=== PATIENT | female | born 1930 | race Caucasian/White ===

== ENCOUNTER 2018-12-11 09:42 | Observation (INO) ==
--- NOTE | 2018-12-11 10:07 | ERNOTE ---
Upper Extremity HPI - Narrative Date of Service: 12/11/18 - General Extremities Pain Location: shoulder: left, arm: left, elbow: left Time Seen by Provider: 12/11/18 10:07 Source: patient Exam Limitations: no limitations - Immun/Allergies/Home Medications Immunizations: IMMUNIZATION HX Immunizations Up to Date Yes History of Influenza Vaccine Yes Hx Pneumococcal Vaccination Yes Allergies/Adverse Reactions: Allergies Allergy/AdvReac Type Severity Reaction Status Date / Time atenolol [From Tenormin] Allergy hives Verified 12/11/18 09:52 azithromycin Allergy hives, Verified 12/11/18 09:52 [From Zithromax Z-Peter] itchy Penicillins Allergy Verified 12/11/18 09:52 Sulfa (Sulfonamide Allergy Verified 12/11/18 09:52 Antibiotics) rhinitis Allergy seasonal Uncoded 12/11/18 09:52 Home Medications: HOME MEDICATIONS Acetaminophen [Tylenol] 1,000 mg PO Q8H PRN 02/16/16 [Last Taken Unknown] Cholecalciferol (Vitamin D3) [Vitamin D3] 2,000 unit PO DAILY 02/16/16 [Last Taken Unknown] Fluticasone Propionate [Flonase] 2 spray NS DAILY PRN 02/16/16 [Last Taken Unknown] lorazepam 0.5 mg tablet 0.5 mg PO HS 30 Days #30 tab 06/23/18 [Last Taken Unknown] albuterol sulfate HFA 90 mcg/actuation aerosol inhaler 1 puff IH Q4H PRN g 06/24/18 [Last Taken Unknown] melatonin 5 mg tablet 5 mg PO HS PRN 06/24/18 [Last Taken Unknown] multivitamin tablet 1 tab PO DAILY 06/24/18 [Last Taken Unknown] wheat dextrin 3 gram/3.8 gram oral powder 1 packet PO DAILY 06/24/18 [Last Taken Unknown] aspirin 81 mg chewable tablet 81 mg PO .QOD tab 06/27/18 [Last Taken Unknown] amlodipine 5 mg tablet 5 mg PO DAILY #30 tab 10/05/18 [Last Taken Unknown] isosorbide mononitrate ER 30 mg tablet,extended release 24 hr 15 mg PO DAILY #15 tab 10/05/18 [Last Taken Unknown] levothyroxine 50 mcg tablet 50 mcg PO DAILY #30 tab 10/05/18 [Last Taken Unknown] losartan 100 mg tablet 100 mg PO HS #30 tab 11/08/18 [Last Taken Unknown] pravastatin 40 mg tablet 40 mg PO DAILY #30 tab 10/05/18 [Last Taken Unknown] - Pain Score Pain Score #1 Pain Score: 4 - History of Present Illness Narrative: The patient is a 88 year old female who presents for intermittent left arm pain which has been present for several months. There are associated symptoms of left anterior chest pain. The patient reports left arm pain, 4/10. There are no alleviating factors. There are no aggravating factors. Previous treatments have included: none. The past medical history includes: GERD, hyp othyroid, HLD, allergic rhinitis, osteoarthritis and osteopenia. The social history is negative. The patient has had no ill contacts. Patient denies know injury but states she did have increased pain yesterday while doing her arm exercises. Patient states that pain to left arm has been intermittent for several months and typically resolves spontaneously. Patient states last evening she began having some left anterior chest pain without dypsnea, nausea or diaphoresis. Review of Systems - Review of Systems Constitutional: Present: no symptoms reported. Absent: fever, fatigue EYE: Present: no symptoms reported ENT: Present: no symptoms reported. Absent: ear pain, nasal drainage, sore throat Respiratory: Present: no symptoms reported. Absent: shortness of breath, cough Cardiology: Present: chest pain. Absent: edema Gastrointestinal/Abdominal: Present: constipation. Absent: nausea, vomiting, diarrhea, abdominal pain Genitourinary: Present: no symptoms reported. Absent: dysuria Musculoskeletal: Present: joint pain Skin: Present: no symptoms reported. Absent: rash Neurological: Present: no symptoms reported Endocrine: Present: no symptoms reported Hematologic/Lymphatic: Present: no symptoms reported Psych: Present: no symptoms reported All Other Systems: All systems neg except as marked Medical History (Last Reviewed 12/11/18 @ 10:15 by BOONE Tirado) Osteopenia of femoral neck, bilateral (Chronic) (Chronic) History of osteopenia (Chronic) Osteoarthritis (Chronic) Onset Date: 09/04/14 Elevated troponin (Resolved) Onset Date: 03/06/18 admitted [facility] C. difficile diarrhea (Resolved) Onset Date: ~09/2015 Angiomyolipoma of left kidney (Chronic) Allergic rhinitis (Chronic) Onset Date: 01/03/12 GERD (gastroesophageal reflux disease) (Chronic) Hyperlipemia (Acute) Hypothyroidism (Chronic) Surgical History: Surgical History (Last Reviewed 12/11/18 @ 10:15 by BOONE Tirado) Abnormal colonoscopy Onset Date: 09/29/15 patchy mild acute inflammation of the lamina proprla w/ focal ulceration; hyperplastic polyp; infection diff. diverticular associated colitis-Dr. Laws H/O breast biopsy noncancerous H/O: hysterectomy Onset Date: ~1977 History of appendectomy Onset Date: ~1977 Dr. Zaidi w/hyst History of oophorectomy Onset Date: ~1977 partial menometrorrhagia/uterine fibroids History of tonsillectomy Onset Date: ~1946 Normal colonoscopy Onset Date: 05/21/05 Dr. Martino Normal echocardiogram Onset Date: ~01/2016 Family History: Family History (Last Reviewed 12/11/18 @ 10:15 by BOONE Tirado) Mother , age 70 Kidney disease Father , 98 Old age Sister , 86 Alzheimers disease Social History: Preferred Language Iraqi Smoking Status Light tobacco smoker Abuse History No History of abuse Psych History No pertinent hx Alcohol Use none Drug Use none (Last Updated 11/01/18 @ 15:41 by Patricia Pina MD) No Social History Section defined Physical Exam - Physical Exam General Appearance: Present: wd/wn, alert, no apparent distress Head Exam: Present: normal inspection, no evidence of injury Ears, Nose, Throat: Present: cerumen impaction - left. Absent: sinus pain/drainage Neck: Present: normal inspection, nontender Respiratory: Present: no respiratory distress, normal breath sounds, no accessory muscle use, lungs clear Cardiovascular/Chest: Present: regular rate, rhythm, systolic murmur Peripheral Pulses: N=norm/S=strong/W=weak/B=bound/A=absent: Radial (R): Normal Gastrointestinal/Abdominal: Present: normal bowel sounds, nontender, nondistended, soft, no organomegaly Back Exam: Present: no CVA tenderness Extremity Exam: Absent: pedal edema Neurological Exam: Present: alert, oriented, normal mood/affect Skin Exam: Present: normal color, warm/dry Progress - Date and Time Seen: Date and Time: 12/11/18 11:38 Discussed case with , patient will be admitted for serial trop and EKG monitoring. ECHO report from previous [facility] admission obtained. - Results and Orders Patient's Lab Results:: I have reviewed the patient's lab results. - Vital Signs Patient's Vital Signs:: I have reviewed the patient's vital signs. Vital Signs: Vital Signs 12/11/18 09:43 Temperature 36.6 C Pulse Rate 67 Respiratory Rate 16 Blood Pressure 139/60 O2 Sat by Pulse Oximetry 95 - EKG EKG #1 EKG: NSR, nonspecific ST T wave changes, other - intermittent PVC's EKG read: Reviewed by me - X-Ray X-Ray #1 X-Ray: chest Interpretation: Reviewed by me X-ray Comments: X-RAY REPORT [id number] RAD/Chest PA & Lateral *~ Exam Date: 12/11/2018 09:58 Ordering Physician: Orlando Robbins DO HISTORY: Chest Pain TWO VIEW CHEST Comparison: 01/22/2017 Technique: Upright frontal and lateral views of the chest were obtained. Findings: The cardiac silhouette is within normal limits of size. The mediastinum and hilum are with in normal limits. The lung mclean demonstrate hyperinflation with scattered fibrotic change, but appears clear. Again seen is a granuloma in the left lower lung zone. I do not see evidence for an infiltrate, effusion or pulmonary edema. There is a thoracic scoliosis convexity directed to the right. There is diffuse disc space narrowing with degenerative spurring in the endplates with vertebral body height loss, which appears chronic. IMPRESSION: 1. NO ACUTE CARDIOPULMONARY PROCESS. 2. HYPERINFLATION Electronically signed by Varinder Mcdermott M.D.. X-Ray #2 X-Ray: shoulder Interpretation: Reviewed by me X-ray Comments: X-RAY REPORT [id number] RAD/Shoulder Complete LT *~ Exam Date: 12/11/2018 10:20 Ordering Physician: Leona Corrales MANAGER ENGINE HISTORY: Left shoulder pain for six months to year THREE VIEW LEFT SHOULDER COMPARISON: None Technique: Three projections of the shoulder were obtained. Findings: There is diffuse osteopenia. The acromioclavicular joint is maintained. The clavicle appears intact and is not elevated. The visualized scapula is intact. The glenohumeral joint is maintained and I do not see evidence for dislocation. The proximal humerus is intact. If there is clinical concern for internal derangement, followup MRI is recommended. The visualized lung field is clear. IMPRESSION: 1. NO ACUTE OSSEOUS ABNORMALITY. 2. DIFFUSE OSTEOPENIA. Electronically signed by Varinder Mcdermott M.D.. - Progress/Reassessment Chief Complaint: Upper Extremity Injury/Problem Departure Clinical Impression: Elevated troponin Chest pain Qualifiers: Chest pain type: unspecified Qualified Code(s): R07.9 - Chest pain, unspecified Arm pain Qualifiers: Laterality: left Qualified Code(s): M79.602 - Pain in left arm - Departure Disposition: Still a patient Condition: Good
[2018-12-11 10:23] LABS: Hematocrit 47.9 % (37.0-47.0); Mean Cell Volume 91.9 fl (78-100); Mean Corpuscular Hemoglobin 30.7 pg (27-31); Mean Corpuscular Hgb Conc 33.4 g/dl (32-36); Mean Platelet Volume 10.5 fl (8-12.5); Neutrophil # 3.8 K/mm3 (1.3-6.0); Neutrophil % 64.5 % (42-75.0); Platelet Count 271 K/mm3 (150-450); Red Blood Count 5.21 M/mm3 (4.2-5.4); Red Cell Distribution Width 13.1 % (11.5-14.0); White Blood Count 5.8 K/mm3 (4.0-10.5)
[2018-12-11 10:25] LABS: INR 0.96 INR (0.90-1.10); Partial Thrombolplastin Time 26.4 Seconds (24-32); Prothrombin Time (Patient) 9.6 Seconds (9.0-11.0)
[2018-12-11 10:30] LABS: Albumin * 3.9 gm/dl (3.4-5.0); Anion Gap 11.6 mmol/L (6.8-13.8); BUN/Creatinine Ratio 22.2 (9.0-21.6); Bilirubin, Total 0.5 mg/dL (0.0-1.1); Ca. Corrected For Albumin 9.8 mg/dL (8.4-10.2); Carbon Dioxide 29.1 mmol/L (24-32.6); Potassium 3.7 mmol/L (3.4-4.6); Total Protein 7.8 gm/dL (6.2-8.2)
[2018-12-11 10:34] LABS: Troponin I 0.162 ng/mL (0.00-0.10)
[2018-12-11] MEDS ORDERED: ASPIRIN 81 MG TAB.CHEW PO ONE (10:39)
[2018-12-11] MEDS ORDERED: MELATONIN 3,000 MCG TABLET PO PRN (16:50)
--- NOTE | 2018-12-11 17:13 | HP ---
Chief Complaint - Chief Complaint Date of Service: 12/11/18 Time of Service: 17:00 Chief Complaint: Left arm pain History of Present Illness: 88-year-old female with a past medical history of hypothyroidism, hyperlipidemia, osteoarthritis, hypertension presents from home with complaints of left arm pain. She states the pain is achy in nature. Pain is worse with raising her arm over her head. She did not take anything for the pain. Pain lasts a few hours she states. Onset is 1 year ago and has been intermittent since. Pain was very severe last night when she went to bed, and she rated it a 8 out of 10. She presented to the emergency department and was admitted for observation. Now the pain is a 2 out of 10. She denies shortness of breath, diaphoresis, palpitations, shortness of breath, nausea or vomiting. She states has never had imaging of her left shoulder. She has a history of osteoarthritis in her low back. Medical History (Last Reviewed 12/11/18 @ 13:13 by Jamila Foster RN) Osteopenia of femoral neck, bilateral (Chronic) (Chronic) History of osteopenia (Chronic) Osteoarthritis (Chronic) Onset Date: 09/04/14 Elevated troponin (Resolved) Onset Date: 03/06/18 admitted [facility] C. difficile diarrhea (Resolved) Onset Date: ~09/2015 Angiomyolipoma of left kidney (Chronic) Allergic rhinitis (Chronic) Onset Date: 01/03/12 GERD (gastroesophageal reflux disease) (Chronic) Hyperlipemia (Acute) Hypothyroidism (Chronic) Surgical History: Surgical History (Last Reviewed 12/11/18 @ 13:14 by Jamila Foster RN) Abnormal colonoscopy Onset Date: 09/29/15 patchy mild acute inflammation of the lamina proprla w/ focal ulceration; hyperplastic polyp; infection diff. diverticular associated colitis-Dr. Laws H/O breast biopsy noncancerous H/O: hysterectomy Onset Date: ~1977 History of appendectomy Onset Date: ~1977 Dr. Zaidi w/sanjiv History of oophorectomy Onset Date: ~1977 partial menometrorrhagia/uterine fibroids History of tonsillectomy Onset Date: ~1946 Normal colonoscopy Onset Date: 05/21/05 Dr. Martino Normal echocardiogram Onset Date: ~01/2016 Family History: Family History (Last Reviewed 12/11/18 @ 13:14 by Jamila Foster RN) Mother , age 70 Kidney disease Father , 98 Old age Sister , 86 Alzheimers disease Social History: Patient Lives/Resources Home Utilized Occupation retired Preferred Language Khmer Do you have any voodoo or No cultural preference? Smoking Status Current every day smoker Have you smoked in the past 12 Yes months Do you dip or chew tobacco No Abuse History No History of abuse Psych History No pertinent hx Alcohol Use none Drug Use none (Last Updated 11/01/18 @ 15:41 by Patricia Pina MD) No Social History Section defined Review Of Systems (GEN) - Review of Systems Generalized/Overall Review: Absent: Fever Cardiac: Absent: Chest Pain, Edema, Palpitations Abdominal: Absent: Nausea, Vomiting, Abdominal Pain Musculoskeletal: Present: Joint Pain - Left shoulder Misc: All systems neg except as marked Immunizations: IMMUNIZATION HX Immunizations Up to Date Yes History of Influenza Vaccine Yes Hx Pneumococcal Vaccination Yes Allergies/Adverse Reactions: Allergies Allergy/AdvReac Type Severity Reaction Status Date / Time atenolol Allergy Hives Verified 12/11/18 13:11 azithromycin Allergy Hives Verified 12/11/18 13:11 Penicillins Allergy Hives Verified 12/11/18 13:11 Sulfa (Sulfonamide Allergy Hives Verified 12/11/18 13:11 Antibiotics) Home Medications: HOME MEDICATIONS Acetaminophen [Tylenol] 1,000 mg PO Q8H PRN 02/16/16 [Last Taken Unknown] Cholecalciferol (Vitamin D3) [Vitamin D3] 2,000 unit PO DAILY 02/16/16 [Last Taken Unknown] lorazepam 0.5 mg tablet 0.5 mg PO HS 30 Days #30 tab 06/23/18 [Last Taken Unknown] melatonin 5 mg tablet 5 mg PO HS PRN 06/24/18 [Last Taken Unknown] multivitamin tablet 1 tab PO DAILY 06/24/18 [Last Taken Unknown] wheat dextrin 3 gram/3.8 gram oral powder 1 packet PO DAILY 06/24/18 [Last Taken Unknown] aspirin 81 mg chewable tablet 81 mg PO Q2D tab 06/27/18 [Last Taken 12/11/18 10:00 324 mg in ED] amlodipine 5 mg tablet 5 mg PO DAILY #30 tab 10/05/18 [Last Taken Unknown] isosorbide mononitrate ER 30 mg tablet,extended release 24 hr 15 mg PO DAILY #15 tab 10/05/18 [Last Taken Unknown] levothyroxine 50 mcg tablet 50 mcg PO DAILY #30 tab 10/05/18 [Last Taken Unknown] losartan 100 mg tablet 100 mg PO HS #30 tab 10/05/18 [Last Taken Unknown] Pravastatin Sodium 40 mg PO HS 12/11/18 [Last Taken Unknown] Exam - Exam Vital Signs: Vital Signs - Last Taken Temp 36.1 C 12/11/18 14:39 Pulse 75 12/11/18 14:39 Resp 18 12/11/18 14:39 BP 156/62 H 12/11/18 14:39 Pulse Ox 97 12/11/18 14:39 Constitutional: Present: Alert, Cooperative ENT Exam: Present: hearing grossly normal Neck: Present: non-tender, trachea midline. Absent: lymphadenopathy (R), lymphadenopathy (L) Respiratory: Present: lungs clear Cardiovascular/Chest: Present: normal peripheral pulses Peripheral Pulses: dorsalis-pedis (R): 2+, dorsalis-pedis (L): 2+ Abdomen: Present: Normal bowel sounds, soft, nontender Extremity: Present: non-tender, no pedal edema Skin Exam: Present: normal color, warm/dry Eye contact: Present: cooperative Diagnostic Studies: Abnormal Lab Results 12/11/18 12/11/18 12/11/18 Range/Units 10:07 10:07 16:06 Hct 47.9 H (37.0-47.0) % Monocytes % 9.5 H (0.0-9) % Lymphocytes # 1.33 L (1.5-3.5) k/mm3 BUN/Creatinine Ratio 22.2 H (9.0-21.6) ALT 17 L (19-67) U/L Troponin I 0.162 H* 0.147 H* (0.00-0.10) ng/mL Laboratory Results WBC 5.8 K/mm3 (4.0-10.5) 12/11/18 10:07 RBC 5.21 M/mm3 (4.2-5.4) 12/11/18 10:07 Hgb 16.0 gm/dL (12.5-16.0) 12/11/18 10:07 Hct 47.9 % (37.0-47.0) H 12/11/18 10:07 MCV 91.9 fl (78-100) 12/11/18 10:07 MCH 30.7 pg (27-31) 12/11/18 10:07 MCHC 33.4 g/dl (32-36) 12/11/18 10:07 RDW 13.1 % (11.5-14.0) 12/11/18 10:07 Plt Count 271 K/mm3 (150-450) 12/11/18 10:07 MPV 10.5 fl (8-12.5) 12/11/18 10:07 Immature Gran % (Auto) 0.30 % (0.001-0.429) 12/11/18 10:07 Immature Gran # (Auto) 0.02 K/mm3 (0.000-0.0310) 12/11/18 10:07 Neutrophils % 64.5 % (42-75.0) 12/11/18 10:07 Lymphocytes % 22.9 % (20-51) 12/11/18 10:07 Monocytes % 9.5 % (0.0-9) H 12/11/18 10:07 Eosinophils % 2.1 % (0.0-3.0) 12/11/18 10:07 Basophils % 0.7 % (0.0-1.0) 12/11/18 10:07 Nucleated RBC % 0.0 k/mm3 (0-1) 12/11/18 10:07 Neutrophils # 3.8 K/mm3 (1.3-6.0) 12/11/18 10:07 Lymphocytes # 1.33 k/mm3 (1.5-3.5) L 12/11/18 10:07 Monocytes # 0.6 k/mm3 (0.0-1.0) 12/11/18 10:07 Eosinophils # 0.1 k/mm3 (0.0-0.7) 12/11/18 10:07 Absolute Basophils 0.0 k/mm3 (0.0-0.1) 12/11/18 10:07 PT 9.6 Seconds (9.0-11.0) 12/11/18 10:07 INR (Anticoag Therapy) 0.96 INR (0.90-1.10) 12/11/18 10:07 PTT ([place]) 26.4 Seconds (24-32) 12/11/18 10:07 Sodium 140 mmol/L (132-142) 12/11/18 10:07 Plasma Sodium 140 mmol/L (130-142) 12/11/18 10:07 Potassium 3.7 mmol/L (3.4-4.6) 12/11/18 10:07 Chloride 103 mmol/L (97-106) 12/11/18 10:07 Carbon Dioxide 29.1 mmol/L (24-32.6) 12/11/18 10:07 Anion Gap 11.6 mmol/L (6.8-13.8) 12/11/18 10:07 BUN 20 mg/dL (3-23) 12/11/18 10:07 Creatinine 0.90 mg/dL (0.4-1.4) 12/11/18 10:07 Est GFR (Non-Af Amer) 63 mL/min (60-130) 12/11/18 10:07 BUN/Creatinine Ratio 22.2 (9.0-21.6) H 12/11/18 10:07 Random Glucose 82 mg/dL (70-110) 12/11/18 10:07 Calcium 10.0 mg/dL (7.9-10.9) 12/11/18 10:07 Calcium Adj for Albumin 9.8 mg/dL (8.4-10.2) 12/11/18 10:07 Total Bilirubin 0.5 mg/dL (0.0-1.1) 12/11/18 10:07 AST 20 U/L (0-48) 12/11/18 10:07 ALT 17 U/L (19-67) L 12/11/18 10:07 Alkaline Phosphatase 91 U/L (50-170) 12/11/18 10:07 Troponin I 0.147 ng/mL (0.00-0.10) H* 12/11/18 16:06 B-Natriuretic Peptide 508 pg/mL (5-550) 12/11/18 10:07 Total Protein 7.8 gm/dL (6.2-8.2) 12/11/18 10:07 Albumin 3.9 gm/dl (3.4-5.0) 12/11/18 10:07 Assessment/Plan - Narrative Narrative: 88-year-old female with past medical history of hypothyroidism, osteoarthritis, hyperlipidemia, hypertension presents with left arm pain. She was found to have elevated troponin of 0.16, and nonspecific ST T changes on EKG. She was admitted for observation. Repeat troponins was 0.14, with no significant ST changes on EKG. We will continue to observe her with likely discharge in the morning. Her chest pain is likely musculoskeletal in origin secondary to osteoarthritis. She states she has been doing exercises for her arms at home. - Assessment/Plan (1) Elevated troponin Assessment: Etiology unlikely secondary to cardiac injury. Repeat troponin remained stable. She had an echocardiogram in February 2018 that showed mild mitral and aortic regurg. With a normal ejection fraction. No wall motion abnormalities. Problem: Acute (2) Left upper arm pain Assessment: Likely musculoskeletal in origin secondary to osteoarthritis. Her pain has improved dramatically since she has been admitted. Can give Tylenol for pain as needed. Problem: Acute (3) HTN (hypertension) Assessment: Blood pressure elevated, resume home medications. Problem: Chronic Qualifiers: Hypertension type: essential hypertension Qualified Code(s): I10 - Essential (primary) hypertension (4) Hyperlipemia Assessment: Stable resume home medications. Problem: Chronic Qualifiers: Hyperlipidemia type: unspecified (5) Hypothyroidism Assessment: Stable resume home medications. Problem: Chronic Qualifiers: Hypothyroidism type: acquired (6) Insomnia Assessment: Stable. Resume home medication of melatonin. Problem: Chronic
[2018-12-11] MEDS: LOSARTAN POTASSIUM 50 MG TABLET PO SCH (17:35)
[2018-12-11] MEDS ORDERED: SIMVASTATIN 20 MG TABLET PO SCH (21:00)
[2018-12-12] MEDS ORDERED: LEVOTHYROXINE SODIUM 50 MCG TABLET PO SCH (07:00)
[2018-12-12] MEDS: LOSARTAN POTASSIUM 50 MG TABLET PO SCH (08:17)
[2018-12-12] MEDS ORDERED: amLODIPine BESYLATE 5 MG TABLET PO SCH (09:00)
--- NOTE | 2018-12-12 09:01 | DS ---
(1) Elevated troponin Diagnosis(s): Elevated levels likely chronic in nature etiology unclear. She had similar elevated numbers in 2018 and was sent to [facility] for further evaluation and management, she was deemed not a candidate for any procedure such as cath. Echo was performed which showed no regional wall motion abnormal ities. Problem: Chronic (2) Left upper arm pain Diagnosis(s): Resolved likely is musculoskeletal in origin. This can be worked up as an outpatient. Problem: Chronic (3) HTN (hypertension) Diagnosis(s): Stable no changes in medications. Problem: Chronic Qualifiers: Hypertension type: essential hypertension Qualified Code(s): I10 - Essential (primary) hypertension (4) Hyperlipemia Diagnosis(s): Stable continue current medications. Problem: Chronic Qualifiers: Hyperlipidemia type: unspecified (5) Hypothyroidism Diagnosis(s): Stable no changes to medications. Problem: Chronic Qualifiers: Hypothyroidism type: acquired (6) Insomnia Diagnosis(s): Stable no changes to medications. Problem: Chronic Qualifiers: Insomnia type: unspecified Qualified Code(s): G47.00 - Insomnia, unspecified Description of Stay: 88-year-old female with past medical history of hyperlipidemia hypertension osteoarthritis and hypothyroidism presents with complaints of left arm pain for 1 day. She was found to have elevated troponins of 0.[address]- T changes on EKG. Denies chest pain. She was admitted per the chest pain protocol for observation. Repeat troponin was 0.14 with no significant changes noted on the EKG. Her left arm pain resolved and was likely secondary to musculoskeletal etiology such as osteoarthritis. Further evaluation can be done as an outpatient. She has had similar symptoms in the past (left arm pain and elevated troponin) and cardiac workup at that time was also negative. Echocardiogram from a similar episode in February 2018 was reviewed, and showed mild mitral and aortic regurg, and ejection fraction 55-60%, mild pulmonary hypertension, no regional wall motion abnormalities. She will follow-up with her PCP in 1 week of discharge Procedures Performed: none Results and Findings: Lab Pending Results 12/11/18 10:07: WBC 5.8, RBC 5.21, Hgb 16.0, Hct 47.9 H, MCV 91.9, MCH 30.7, MCHC 33.4, RDW 13.1, Plt Count 271, MPV 10.5, Immature Gran % (Auto) 0.30, Immature Gran # (Auto) 0.02, Neutrophils % 64.5, Lymphocytes % 22.9, Monocytes % 9.5 H, Eosinophils % 2.1, Basophils % 0.7, Nucleated RBC % 0.0, Neutrophils # 3.8, Lymphocytes # 1.33 L, Monocytes # 0.6, Eosinophils # 0.1, Absolute Basophils 0.0 12/11/18 10:07: PT 9.6, INR (Anticoag Therapy) 0.96, PTT ([place]) 26.4 12/11/18 10:07: Sodium 140, Plasma Sodium 140, Potassium 3.7, Chloride 103, Carbon Dioxide 29.1, Anion Gap 11.6, BUN 20, Creatinine 0.90, Est GFR (Non-Af Amer) 63, BUN/Creatinine Ratio 22.2 H, Random Glucose 82, Calcium 10.0, Calcium Adj for Albumin 9.8, Total Bilirubin 0.5, AST 20, ALT 17 L, Alkaline Phosphatase 91, Troponin I 0.162 H*, Total Protein 7.8, Albumin 3.9 12/11/18 10:07: B-Natriuretic Peptide 508 12/11/18 16:06: Troponin I 0.147 H* Discharge Location: Home Disposition: Home self-care Condition: Good Discharge Activity: Activity as tolerated Discharge Diet: General/regular food, For age Referrals: Alba Judd DO [Primary Care Provider] - Additional Patient Instructions (free text): -Please make TCM appointment unless [facility] discharge. Thank you! Chayo @ [phone]. Complete Home Medications List: Complete Home Medication List: Acetaminophen [Tylenol] 1,000 mg PO Q8H PRN 02/16/16 Cholecalciferol (Vitamin D3) [Vitamin D3] 2,000 unit PO DAILY 02/16/16 lorazepam 0.5 mg tablet 0.5 mg PO HS 30 Days #30 tab 06/23/18 melatonin 5 mg tablet 5 mg PO HS PRN 06/24/18 multivitamin tablet 1 tab PO DAILY 06/24/18 wheat dextrin 3 gram/3.8 gram oral powder 1 packet PO DAILY 06/24/18 aspirin 81 mg chewable tablet 81 mg PO Q2D tab 06/27/18 amlodipine 5 mg tablet 5 mg PO DAILY #30 tab 10/05/18 isosorbide mononitrate ER 30 mg tablet,extended release 24 hr 15 mg PO DAILY #15 tab 10/05/18 levothyroxine 50 mcg tablet 50 mcg PO DAILY #30 tab 10/05/18 losartan 100 mg tablet 100 mg PO HS #30 tab 10/05/18 Pravastatin Sodium 40 mg PO HS 12/11/18
[2018-12-12 10:17] VITALS: BP 162/54
== END 2018-12-12 10:22 | disposition home or self-care (01) ==
LOC: ER 09:42 → MS 09:42
PROVIDERS: ADMIT Internal Medicine; ATTEND Internal Medicine
DX: M79.622 Pain in left upper arm; E03.9 Hypothyroidism, unspecified; E78.5 Hyperlipidemia, unspecified; G47.00 Insomnia, unspecified; I10 Essential (primary) hypertension
CPT/HCPCS: 36415; 71020; 71046; 73030; 80053; 83519; 83880; 84484; 85025; 85610; 85730; 93005; 99285; G0378